=== PATIENT | male | born 1985 | race Two or more races ===

== ENCOUNTER 2016-07-31 14:53 | Emergency (ER) | payer OTHER ==
[~2016-07-31] VITALS: Ht 175.3 cm; Wt 112.0 kg
[~2016-07-31 14:53] MED LIST: HYDR-3498 PO; IBUP-1542 PO; PRED20TA PO
[2016-07-31 15:02] VITALS: Ht 175.3 cm; Wt 112.0 kg
[2016-07-31] MEDS ORDERED: IBUP-1542 PO (15:36)
[2016-07-31] MEDS ORDERED: D-ME473S18 PO (15:36)
[2016-07-31] MEDS ORDERED: AZIT250T94 PO (15:36)
--- NOTE | 2016-07-31 15:38 | ERD ---
ER Documentation Chief Complaint Date/Time DATE: 07/31/16 TIME: 15:37 Chief Complaint cough and left ear pain x 4 days HPI This 31-year-old male presents with cough and left ear pain for last 4 days. He may have had fever yesterday but no current fever. He denies vomiting, abdominal pain, chest pain, neck stiffness, rashes. ROS All systems reviewed and are negative except as per history of present illness. Medications Home Meds Active Scripts Dextromethorphan Hb-Promethazine Hcl (Promethazine DM Syrup) 473 Ml Syrup, 5 ML PO Q6H Y for COUGH, #4 OZ Prov:MAURILIO DUNNE MD 07/31/16 Ibuprofen* (Motrin*) 600 Mg Tab, 600 MG PO Q6, #15 TAB Prov:MAURILIO DUNNE MD 07/31/16 Azithromycin* (Zithromax*) 250 Mg Tablet, 250 MG PO .ZPACK DIRECTED, #6 TAB TAKE 500 MG (2 TABS) THE FIRST DAY THEN 250 MG (1 TAB) DAYS 2-5 Prov:MAURILIO DUNNE MD 07/31/16 Ibuprofen* (Motrin*) 600 Mg Tab, 600 MG PO Q6, #20 TAB Prov:KAREN DAILY PA-C 02/13/16 Hydrocodone Bit-Acetaminophen* ([place]od[place]*) 5-325 Mg Tab, 1 TAB PO Q6 Y for PAIN, # 7 TAB Prov:KAREN DAILY PA-C 02/13/16 Prednisone* (Prednisone*) 20 Mg Tab, 40 MG PO DAILY for 4 Days, TAB Prov:KAREN DAILY PA-C 02/13/16 Allergies Allergies: Coded Allergies: No Known Allergy (Unverified , 02/13/16) PMhx/Soc Medical and Surgical Hx: pt denies Medical Hx, pt denies Surgical Hx Hx Alcohol Use: No Hx Substance Use: No Hx Tobacco Use: No Smoking Status: Never smoker Physical Exam Vitals Vital Signs Date Time Temp Pulse Resp B/P Pulse Ox O2 Delivery O2 Flow Rate FiO2 07/31/16 15:02 97.6 87 18 127/70 98 Physical Exam Const: [] Alert, [id number]. Head: Atraumatic Eyes: Normal Conjunctiva ENT: Normal External Ears, Nose and Mouth. Left TM is red with decreased light reflex. Neck: Full range of motion..~ No meningismus. Resp: Clear to auscultation bilaterally. Rhonchi without rales or wheezing appreciated. Cardio: Regular rate and rhythm, no murmurs Abd: Soft, non tender, non distended. Normal bowel sounds Skin: No petechiae or rashes Back: No midline or flank tenderness Ext: No cyanosis, or edema Neur: Awake and alert Psych: Normal Mood and Affect Procedures/MDM This patient presents with URI symptoms and signs of otitis media. He was treated with Zithromax, promethazine and ibuprofen. The patient was stable with no new complaints during the ER course. Clinically, there is no current evidence to suggest meningitis, sepsis, acute abdomen, pneumonia, acute coronary syndrome, pulmonary embolism, or any other emergent condition appearing to require further evaluation or hospitalization. The patient should certainly return for any new or worsening symptoms per the aftercare instructions. They should otherwise follow-up with her primary care doctor for reevaluation this week. Departure Diagnosis: Primary Impression: Otitis media Otitis media type: suppurative Laterality: left Chronicity: acute Recurrence: not specified as recurrent Spontaneous tympanic membrane rupture: without spontaneous rupture Qualified Code: H66.002 - Acute suppurative otitis media of left ear without spontaneous rupture of tympanic membrane, recurrence not specified Condition: Stable Patient Instructions: Otitis Media, Abx Tx (Adult) Additional Instructions: Recheck for new or worsening symptoms or primary care doctor. MAURILIO DUNNE MD Jul 31, 2016 15:38
== END 2016-07-31 16:27 | disposition home or self-care (01) ==
LOC: FTE 14:53
DX: H66.002 Acute suppurative otitis media without spontaneous rupture of ear drum, left ear (principal)
CPT/HCPCS: 99283